=== PATIENT | female | born 1985 | race African-American/Black ===

== ENCOUNTER 2016-09-22 13:13 | Emergency (ER) | payer MEDICAID ==
[2016-09-22] MEDS ORDERED: DIPHENHYDRAMINE HCL 50 MG/ML VIAL IV ONE (14:49)
[2016-09-22] MEDS ORDERED: PROCHLORPERAZINE EDISYLATE INJ 10 MG/2 ML VIAL IV ONE (14:49)
[2016-09-22] MEDS ORDERED: KETOROLAC TROMETHAMINE INJ/PF 30 MG/1 ML SDV IV ONE (14:49)
[2016-09-22] MEDS ORDERED: NORMAL SALINE 1000 ML 1,000 ML IV ONE (14:49)
--- NOTE | 2016-09-22 15:34 | ER Document Report ---
ED Medical Screen (RME) - General TRAVEL OUTSIDE OF THE [place] IN LAST 30 DAYS: No <FIDEL HENLEY - Last Filed: 09/22/16 15:34> <TONY FLORES - Last Filed: 09/22/16 16:50> - General Chief Complaint: Headache Stated Complaint: HEAD PAIN Time Seen by Provider: 09/22/16 14:41 Notes: 31-year-old female presents emergency department for complaints of migraine. Patient states she has had this migraine for 3 days and she has been crying and vomiting. Patient states she took a Fioricet with no relief. Patient states she also has some right arm numbness that has been gone for about a month. Patient denies any suicidal ideation or homicidal ideation but has been very stressed out recently. Patient is also concerned that her blood glucose level is high. Patient has been told that she has prediabetes but she stopped taking metformin about a year ago. Patient states diabetes runs in her family. Patient states she tastes metal all the time. Patient also sees a [facility] and is aware of her mental health resources. (FIDEL HENLEY) - Related Data Allergies/Adverse Reactions: Penicillins Allergy (Intermediate, Verified 09/22/16 14:31) Past Medical History - Social History Family history: None - Past Medical History Cardiac Medical History: Reports: Hx Hypertension - Borderline Pulmonary Medical History: Reports: Hx Asthma Neurological Medical History: Reports: Hx Migraine Endocrine Medical History: Denies: Hx Diabetes Mellitus Type 1, Hx Diabetes Mellitus Type 2 Renal/ Medical History: Denies: Hx Peritoneal Dialysis Musculoskeltal Medical History: Reports Hx Fibromyalgia Past Surgical History: Reports: Hx Dilation and Curettage, Hx Gynecologic Surgery - D&C - Immunizations Immunizations up to date: Yes Hx Diphtheria, Pertussis, Tetanus Vaccination: Yes <FIDEL HENLEY - Last Filed: 09/22/16 15:34> Physical Exam <FIDEL HENLEY - Last Filed: 09/22/16 15:34> <TONY FLORES - Last Filed: 09/22/16 16:50> - Vital signs Vitals: Temp Pulse Resp BP Pulse Ox 98.1 F 62 18 125/97 H 100 09/22/16 14:00 09/22/16 14:00 09/22/16 14:00 09/22/16 14:00 09/22/16 14:00 - Notes Notes: GENERAL: Alert, interacts well. No acute distress. HEAD: No facial droop. LUNGS: No respiratory distress. HEART: Regular rate. EXTREMITIES: Moves all 4 extremities spontaneously. 5 out of 5 strength in upper extremities bilaterally. NEUROLOGICAL: Alert and oriented x3. Normal speech, not slurred. PSYCH: Tearful. (FIDEL HENLEY) Course - Laboratory Result Diagrams: 09/22/16 16:00 09/22/16 16:00 <TONY FLORES - Last Filed: 09/22/16 16:50> - Vital Signs Vital signs: Temp Pulse Resp BP Pulse Ox 98.1 F 62 18 125/97 H 100 09/22/16 14:00 09/22/16 14:00 09/22/16 14:00 09/22/16 14:00 09/22/16 14:00 - Laboratory Laboratory results interpreted by me: 09/22/16 09/22/16 09/22/16 16:00 16:00 16:00 WBC 11.2 H Absolute Neutrophils 8.3 H BUN 5 L Serum HCG, Qual POSITIVE H Scribe Documentation - Scribe Written by Scribe:: Yamel Morrison, 09/22/16 15:40 acting as scribe for :: Linwood <FIDEL HENLEY - Last Filed: 09/22/16 15:34>
[2016-09-22 16:09] LABS: ABSOLUTE LYMPHOCYTES (AUTO) 2.1 10^3/uL (0.5-4.7); ABSOLUTE MONOCYTES (AUTO) 0.7 10^3/uL (0.1-1.4); ABSOLUTE NEUT (AUTO) 8.3 10^3/uL (1.7-8.2); BASOPHILS % (AUTO) 0.4 % (0-2); EOSINOPHILS % (AUTO) 0.4 % (0-6); HEMOGLOBIN 12.5 g/dL (12.0-15.5); HGB HCT DIFFERENCE 0.5; MEAN CORPUSCULAR HEMOGLOBIN 31.4 pg (27.0-33.4); MEAN CORPUSCULAR HGB CONC 33.7 g/dL (32.0-36.0); MEAN CORPUSCULAR VOLUME 93 fl (80-97); MONOCYTES % (AUTO) 5.9 % (3-13); RED BLOOD COUNT 3.98 10^6/uL (3.72-5.28); RED CELL DISTRIBUTION WIDTH 13.8 % (11.5-14.0); SEGMENTED NEUTROPHILS % (AUTO) 74.3 % (42-78); WHITE BLOOD COUNT 11.2 10^3/uL (4.0-10.5)
[2016-09-22 16:30] LABS: ALANINE AMINOTRANSFERASE 21 U/L (9-52); ALBUMIN 4.1 g/dL (3.5-5.0); ALKALINE PHOSPHATASE 81 U/L (38-126); ANION GAP 11 (5-19); ASPARTATE AMINO TRANSFERASE 25 U/L (14-36); BILIRUBIN,DIRECT 0.2 mg/dL (0.0-0.4); BILIRUBIN,TOTAL 0.5 mg/dL (0.2-1.3); BLOOD UREA NITROGEN 5 mg/dL (7-20); CALCIUM 9.5 mg/dL (8.4-10.2); CARBON DIOXIDE 22 mmol/L (22-30); CHLORIDE 104 mmol/L (98-107); CREATININE RESULT 0.52 mg/dL (0.52-1.25); GLUCOSE 87 mg/dL (75-110); POTASSIUM 3.8 mmol/L (3.6-5.0); TOTAL PROTEIN 7.5 g/dL (6.3-8.2)
--- NOTE | 2016-09-22 18:45 | ER Document Report ---
ED General - General Chief Complaint: Headache Stated Complaint: HEAD PAIN Time Seen by Provider: 09/22/16 14:41 TRAVEL OUTSIDE OF THE [place] IN LAST 30 DAYS: No - HPI Patient complains to provider of: Headache nausea vomiting metal taste in mouth Notes: Patient coming in for the above-stated symptoms ongoing intermittently for months. Patient states that a history of chronic migraines headache today similar to migraines in the past. Patient states last menstrual cycle was in June. Patient states she did take a home test recently that was negative. Patient has a - Related Data Allergies/Adverse Reactions: Penicillins Allergy (Intermediate, Verified 09/22/16 14:31) Past Medical History - Social History Smoking Status: Current Some Day Smoker Chew tobacco use (# tins/day): No Frequency of alcohol use: None Drug Abuse: None, Marijuana Family History: Reviewed & Not Pertinent - Past Medical History Cardiac Medical History: Reports: Hx Hypertension - Borderline Pulmonary Medical History: Reports: Hx Asthma Neurological Medical History: Reports: Hx Migraine Endocrine Medical History: Denies: Hx Diabetes Mellitus Type 1, Hx Diabetes Mellitus Type 2 Renal/ Medical History: Denies: Hx Peritoneal Dialysis Musculoskeltal Medical History: Reports Hx Fibromyalgia Past Surgical History: Reports: Hx Dilation and Curettage, Hx Gynecologic Surgery - D&C - Immunizations Immunizations up to date: Yes Hx Diphtheria, Pertussis, Tetanus Vaccination: Yes Review of Systems - Review of Systems Constitutional: Other - Headache nausea vomiting placed in mouth EENT: No symptoms reported Cardiovascular: No symptoms reported Respiratory: No symptoms reported Gastrointestinal: No symptoms reported Genitourinary: No symptoms reported Female Genitourinary: No symptoms reported Musculoskeletal: No symptoms reported Skin: No symptoms reported Hematologic/Lymphatic: No symptoms reported Neurological/Psychological: No symptoms reported Physical Exam - Vital signs Vitals: Temp Pulse Resp BP Pulse Ox 98.1 F 62 18 125/97 H 100 09/22/16 14:00 09/22/16 14:00 09/22/16 14:00 09/22/16 14:00 09/22/16 14:00 Interpretation: Normal - General General appearance: Appears well, Alert - HEENT Head: Normocephalic, Atraumatic Eyes: Normal Pupils: PERRL - Respiratory Respiratory status: No respiratory distress Chest status: Nontender Breath sounds: Normal Chest palpation: Normal - Cardiovascular Rhythm: Regular Heart sounds: Normal auscultation Murmur: No - Abdominal Inspection: Morbidly Obese Distension: No distension Bowel sounds: Normal Tenderness: Nontender Organomegaly: No organomegaly - Back Back: Normal, Nontender - Extremities General upper extremity: Normal inspection, Nontender, Normal color, Normal ROM , Normal temperature General lower extremity: Normal inspection, Nontender, Normal color, Normal ROM , Normal temperature, Normal weight bearing. No: Tohng's sign - Neurological Neuro grossly intact: Yes Cognition: Normal Orientation: AAOx4 Marlo Coma Scale Eye Opening: Spontaneous [place] Coma Scale Verbal: Oriented [place] Coma Scale Motor: Obeys Commands Marlo Coma Scale Total: 15 Speech: Normal Motor strength normal: LUE, RUE, LLE, RLE Sensory: Normal - Psychological Associated symptoms: Normal affect, Normal mood - Skin Skin Temperature: Warm Skin Moisture: Dry Skin Color: Normal Course - Re-evaluation Re-evalutation: 09/22/16 19:26 Patient's lab work shows that she is . Bedside ultrasound showed a IUP with biparietal measurement showing 15 weeks. heart rate was at 150. Patient was encouraged to follow-up with [facility] Tylenol for headache Reglan for nausea along with [id number]-yoq-cxieghu options were given to the patient and her discharge instructions - Vital Signs Vital signs: Temp Pulse Resp BP Pulse Ox 98.4 F 81 18 108/60 99 09/22/16 18:54 09/22/16 18:54 09/22/16 18:54 09/22/16 18:54 09/22/16 18:54 - Laboratory Result Diagrams: 09/22/16 16:00 09/22/16 16:00 Laboratory results interpreted by me: 09/22/16 09/22/16 09/22/16 16:00 16:00 16:00 WBC 11.2 H Absolute Neutrophils 8.3 H BUN 5 L Serum HCG, Qual POSITIVE H Beta HCG, Quant 09/22/16 16:00 WBC Absolute Neutrophils BUN Serum HCG, Qual Beta HCG, Quant 52486.00 H Discharge - Discharge Clinical Impression: Qualifiers: Weeks of gestation: 15 weeks Qualified Code(s): Z3A.15 - 15 weeks gestation of Headache Qualifiers: Headache type: unspecified Headache chronicity pattern: chronic headache Intractability: not intractable Qualified Code(s): R51 - Headache Nausea and vomiting Qualifiers: Vomiting type: unspecified Vomiting Intractability: unspecified Qualified Code( s): R11.2 - Nausea with vomiting, unspecified Condition: Good Disposition: HOME, SELF-CARE Instructions: ([facility]), Nausea or Vomiting, Nonspecific ([facility]), Headache ([facility]), Ob-Dry Cans Operator Doctors Additional Instructions: Laboratory studies have shown that you are . This could explain a multitude of other symptoms including the metal taste in her mouth or nausea or vomiting and your headache. Shows you are approximately 15 weeks . Please take vitamins as prescribed. You may take the Reglan as prescribed You have been seen for vomiting during . You should continue to drink plenty of water and consider taking a solution such as Pedialyte if your having difficulty eating food. Please return if you become unable to drink any fluids for more than 12 hours, urinate less than twice a day, pass out, or have any other symptoms that are concerning to you. For nausea and vomiting during I recomment: Start with 10-12.5 mg of pyridoxine (vitamin B6) three times a day for 2 days. If not fully effective, Increase to 12.5 mg of pyridoxine four times a day for 2 days. If not fully effective, Increase to 25 mg of pyridoxine three times a day for 2 days. If not fully effective, Continue 25 mg pyridoxine 3 times a day, and add 12.5 mg of doxylamine before bedtime each day for 2 days. If not fully effective, Continue 25 mg pyridoxine 3 times a day, and take 12.5 mg of doxylamine twice a day. If not fully effective, Continue 25 mg pyridoxine 3 times a day, and take 12.5 mg of doxylamine three times a day. If not fully effective, Continue 25 mg pyridoxine 3 times a day, and 12.5 mg of doxylamine 3 times a day , while adding Emetrol, one to two tablespoons (15-30 cc) taken once or twice a day as needed. (Emetrol is an llla-prv-xwoovqv mixture of sugar syrups and phosphoric acid [phosphorylated carbohydrate solution]) that acts by soothing the actual wall of the gastrointestinal tract). If not fully effective, Consult with your doctor. Prescriptions: Metoclopramide HCl [Reglan] 5 mg PO Q6 #20 tablet Jve028/FA/Omega3/Dha/Fish Oil [ Gummies] 1 each PO DAILY #30 tab.chew Forms: Return to Work
[2016-09-22 18:56] VITALS: BP 108/60
== END 2016-09-22 18:55 | disposition home or self-care (01) ==
LOC: ER 13:13
DX: O26.892 Other specified pregnancy related conditions, second trimester (principal); R51 Headache; R43.8 Other disturbances of smell and taste; O21.9 Vomiting of pregnancy, unspecified; O99.512 Diseases of the respiratory system complicating pregnancy, second trimester; J45.909 Unspecified asthma, uncomplicated; O99.332 Smoking (tobacco) complicating pregnancy, second trimester; Z3A.15 15 weeks gestation of pregnancy; Z88.0 Allergy status to penicillin
CPT/HCPCS: 96374; 99284; 96375; 36415; 82962; 84702; 84703; 85025; 80053; J1200; J1885; J0780; J7030

== ENCOUNTER → 2016-11-18 | Outpatient (CLI) | payer MEDICAID ==
--- NOTE | 2016-11-18 17:56 | RADIOLOGY REPORT (SQ) ---
EXAM DESCRIPTION: U/S OB 14+ TRNABD 1GES W/O DOP COMPLETED DATE/TIME: 11/18/2016 2:54 pm REASON FOR STUDY: ANATOMY SCAN COMPARISON: None. TECHNIQUE: Static and Dynamic grayscale imaging performed of gravid uterus using transabdominal appr oac. Additional selected color Doppler and spectral images recorded. All stored on PACS. LIMITATIONS: None. FINDINGS: EGA: 22 weeks 5 days ANTON: 03/19/2017 EFW: 539 +/- 80 g PERCENTILE: 41 EMBER: Largest pocket 4.9 cm PLACENTA: Anterior PRESENTATION: Breech ANATOMY: HEART RATE: 150 beats per minute. FOUR CHAMBER HEART: Visualized. THREE VESSEL CORD: Yes. CORD INSERTION: Visualized. KIDNEYS AND BLADDER: Visualized. Appear normal. STOMACH: Visualized. Appears normal. SPINE: Normal as visualized. BRAIN AND LATERAL VENTRICLES: Visualized. Appear normal. OTHER: No other significant finding. MATERNAL ADNEXA: Maternal ovaries not visualized. CERVICAL LENGTH: 4.2 cm Closed. OTHER: No other significant finding. IMPRESSION: LIVING INTRAUTERINE . ESTIMATED GESTATIONAL AGE 22 weeks 5 days NO VISUALIZED ANOMALIES. Trimester of : Second trimester - 13 weeks 1 day to 27 weeks 6 days. TECHNICAL DOCUMENTATION: JOB ID: [id number] [employer]- All Rights Reserved
== END ==
LOC: RAD 12:53
PROVIDERS: ATTEND Nurse Practitioner Women's Health
DX: Z34.82 Encounter for supervision of other normal pregnancy, second trimester (principal)
CPT/HCPCS: 76805

== ENCOUNTER 2017-01-02 00:01 | Outpatient (CLI) | payer MEDICAID ==
[2017-01-02 00:35] LABS: APPEARANCE,URINE CLEAR; BILIRUBIN,URINE NEGATIVE (NEGATIVE); GLUCOSE, URINE NEGATIVE (NEGATIVE); KETONES,URINE NEGATIVE (NEGATIVE); LEUKOCYTE ESTERASE,URINE TRACE (NEGATIVE); NITRITE,URINE NEGATIVE (NEGATIVE); PROTEIN,URINE NEGATIVE (NEGATIVE); URINE SPECIFIC GRAVITY 1.008; UROBILINOGEN,URINE NEGATIVE mg/dL (<2.0)
[2017-01-02 01:21] LABS: AMNISURE (ROM) NEGATIVE (NEGATIVE)
[2017-01-02 01:54] LABS: URINE BARBITURATES SCREEN NEGATIVE; URINE METHADONE SCREEN NEGATIVE; URINE OPIATES LOW NEGATIVE; URINE PHENCYCLIDINE SCREEN NEGATIVE
== END 2017-01-02 01:40 | disposition home or self-care (01) ==
LOC: LC 00:01
PROVIDERS: ATTEND Obstetrics & Gynecology
PROC: 4A1HXCZ Monitoring of Products of Conception, Cardiac Rate, External Approach (ICD-10-PCS; principal; 2017-01-02)
DX: Z34.93 Encounter for supervision of normal pregnancy, unspecified, third trimester (principal); Z36 Encounter for antenatal screening of mother; Z3A.29 29 weeks gestation of pregnancy
CPT/HCPCS: 59899; 84112; 81001; 80307; G0480 ×2

== ENCOUNTER 2017-02-20 13:00 | Emergency (ER) | payer MEDICAID ==
[2017-02-20 13:09] VITALS: BP 136/75
[2017-02-20] MEDS ORDERED: HYDROCODONE/ACETAMINOPHEN 5-325 MG TABLET PO ONE (14:07)
--- NOTE | 2017-02-20 14:07 | ER Document Report ---
HPI - HPI Patient complains to provider of: Low back pain radiating to right hip and leg Onset: Last week Onset/Duration: Intermittent Quality of pain: Sharp Severity: Severe Pain Level: 5 Context: Patient states she has a history of low back pain with sciatica. States she is moving into a new home, and has been lifting heavy boxes. Patient denies loss of control of bowels or bladder, denies abdominal pain or vaginal discharge or bleeding. States she can feel the baby moving. Denies dysuria. States she had a couple of contractions last night but they stopped. Associated Symptoms: None Exacerbated by: Movement Relieved by: Denies Similar symptoms previously: Yes Recently seen / treated by doctor: No - ROS ROS below otherwise negative: Yes Systems Reviewed and Negative: Yes All other systems reviewed and negative - CONSTITUTIONAL Constitutional: DENIES: Fever - EENT EENT: DENIES: Congestion - NEURO Neurology: DENIES: Headache - CARDIOVASCULAR Cardiovascular: DENIES: Chest pain - RESPIRATORY Respiratory: DENIES: Trouble Breathing - GASTROINTESTINAL Gastrointestinal: DENIES: Abdominal Pain - URINARY Urinary: DENIES: Dysuria - REPRODUCTIVE Reproductive: DENIES: : - MUSCULOSKELETAL Musculoskeletal: REPORTS: Back Pain - DERM Skin Color: Normal Skin Problems: None Past Medical History - General Information source: Patient - Social History Smoking Status: Current Some Day Smoker Chew tobacco use (# tins/day): No Frequency of alcohol use: None Drug Abuse: None Lives with: Family Family History: Reviewed & Not Pertinent - Past Medical History Cardiac Medical History: Reports: Hx Hypertension - Borderline Pulmonary Medical History: Reports: Hx Asthma Neurological Medical History: Reports: Hx Migraine Musculoskeltal Medical History: Reports Hx Fibromyalgia Past Surgical History: Reports: Hx Dilation and Curettage, Hx Gynecologic Surgery - D&C - Immunizations Immunizations up to date: Yes Hx Diphtheria, Pertussis, Tetanus Vaccination: Yes Vertical Provider Document - CONSTITUTIONAL Agree With Documented VS: Yes Exam Limitations: No Limitations General Appearance: WD/WN, Mild Distress Notes: Patient crying, complaining of lower back pain radiating to right hip/leg. States her sister works upstairs and will be able to drive her home prior to medications being given. - INFECTION CONTROL TRAVEL OUTSIDE OF THE [place] IN LAST 30 DAYS: No - HEENT HEENT: Atraumatic, Normocephalic - NECK Neck: Normal Inspection - RESPIRATORY Respiratory: Breath Sounds Normal, No Respiratory Distress O2 Sat by Pulse Oximetry: 100 - CARDIOVASCULAR Cardiovascular: Regular Rate, Regular Rhythm - GI/ABDOMEN Gastrointestinal: Abdomen Soft, Abdomen Non-Tender - Patient 38 weeks - BACK Notes: Mild tenderness to lumbar spine, right-sided paraspinal muscles tender. Pain radiates down right leg when pressed over sciatic nerve right buttock. No saddle anesthesia on exam - MUSCULOSKELETAL/EXTREMETIES Musculoskeletal/Extremeties: MAEW - NEURO Level of Consciousness: Awake, Alert, Appropriate - DERM Integumentary: Warm, Dry, No Rash Course - Re-evaluation Re-evalutation: 02/20/17 15:54 Pain greatly relieved after one Otis given. Patient sitting up, right leg flexed under left. - Vital Signs Vital signs: Temp Pulse Resp BP Pulse Ox 98.6 F 77 20 136/75 H 100 02/20/17 13:08 02/20/17 13:08 02/20/17 13:08 02/20/17 13:08 02/20/17 13:08 Discharge - Discharge Clinical Impression: Low back pain with right-sided sciatica Qualifiers: Chronicity: unspecified Back pain laterality: right Qualified Code(s): M54.41 - Lumbago with sciatica, right side Condition: Good Disposition: HOME, SELF-CARE Additional Instructions: Tylenol as needed, do not take Otis unless absolutely necessary for pain Ice or heat packs to back Follow-up with your doctor Wednesday for recheck Return if worsens and as needed Prescriptions: Hydrocodone/Acetaminophen [Otis 5-325 mg Tablet] 1 tab PO TID #5 tablet Forms: Return to Work
[2017-02-20 15:42] LABS: APPEARANCE,URINE SLIGHTLY-CLOUDY; BILIRUBIN,URINE NEGATIVE (NEGATIVE); GLUCOSE, URINE NEGATIVE (NEGATIVE); KETONES,URINE NEGATIVE (NEGATIVE); LEUKOCYTE ESTERASE,URINE SMALL (NEGATIVE); NITRITE,URINE NEGATIVE (NEGATIVE); PROTEIN,URINE NEGATIVE (NEGATIVE); UROBILINOGEN,URINE NEGATIVE mg/dL (<2.0)
== END 2017-02-20 16:11 | disposition home or self-care (01) ==
LOC: ER 13:00
DX: O26.93 Pregnancy related conditions, unspecified, third trimester (principal); M54.41 Lumbago with sciatica, right side; F17.200 Nicotine dependence, unspecified, uncomplicated; Z3A.38 38 weeks gestation of pregnancy
CPT/HCPCS: 81001; 99283

== ENCOUNTER 2017-03-01 09:15 | Outpatient (CLI) | payer MEDICAID ==
[2017-03-01 09:47] LABS: APPEARANCE,URINE SLIGHTLY-CLOUDY; BILIRUBIN,URINE NEGATIVE (NEGATIVE); GLUCOSE, URINE NEGATIVE (NEGATIVE); KETONES,URINE NEGATIVE (NEGATIVE); LEUKOCYTE ESTERASE,URINE LARGE (NEGATIVE); NITRITE,URINE NEGATIVE (NEGATIVE); PROTEIN,URINE NEGATIVE (NEGATIVE); URINE SPECIFIC GRAVITY 1.012
[2017-03-01 10:02] LABS: URINE BARBITURATES SCREEN NEGATIVE; URINE METHADONE SCREEN NEGATIVE; URINE OPIATES LOW NEGATIVE; URINE PHENCYCLIDINE SCREEN NEGATIVE
[2017-03-01 11:19] LABS: ABSOLUTE LYMPHOCYTES (AUTO) 1.7 10^3/uL (0.5-4.7); ABSOLUTE MONOCYTES (AUTO) 0.6 10^3/uL (0.1-1.4); ABSOLUTE NEUT (AUTO) 6.7 10^3/uL (1.7-8.2); BASOPHILS % (AUTO) 0.1 % (0-2); EOSINOPHILS % (AUTO) 0.3 % (0-6); HEMATOCRIT 29.7 % (36.0-47.0); HEMOGLOBIN 10.3 g/dL (12.0-15.5); HGB HCT DIFFERENCE 1.2; LYMPHOCYTES % (AUTO) 18.6 % (13-45); MEAN CORPUSCULAR HEMOGLOBIN 32.1 pg (27.0-33.4); MEAN CORPUSCULAR HGB CONC 34.7 g/dL (32.0-36.0); MEAN CORPUSCULAR VOLUME 93 fl (80-97); MONOCYTES % (AUTO) 6.8 % (3-13); RED BLOOD COUNT 3.22 10^6/uL (3.72-5.28); RED CELL DISTRIBUTION WIDTH 13.5 % (11.5-14.0); SEGMENTED NEUTROPHILS % (AUTO) 74.2 % (42-78)
--- NOTE | 2017-03-01 11:46 | RADIOLOGY REPORT (SQ) ---
EXAM DESCRIPTION: U/S OB LIMITED COMPLETED DATE/TIME: 03/01/2017 11:30 am REASON FOR STUDY: growth for limited care COMPARISON: None. TECHNIQUE: Limited transvaginal grayscale ultrasound for evaluation of specific requested obstetrica l parameters. LIMITATIONS: None. FINDINGS: Intrauterine with heart rate 153. Vertex presentation. Anterior grade 1 placenta. EMBER 13. Estimated weight 3047 g. IMPRESSION: LIMITED OBSTETRICAL ULTRASOUND WITH MEASURED PARAMETERS DELINEATED ABOVE. Trimester of : Third trimester - 28 weeks to delivery. TECHNICAL DOCUMENTATION: JOB ID: [id number] [employer]- All Rights Reserved
--- NOTE | 2017-03-01 11:57 | Non Stress Test Report ---
Non Stress Test Datetime Report Generated by CPN: 03/01/2017 11:57 DEMOGRAPHIC EGA NST: 37.3 EGA NST: 29.0 INDICATION Indication for Study: Other Indication for Study: Other Indication for Study (NST) Other: Labor check, limited PNC Indication for Study (NST) Other: labor check MONITORING Monitor Explained: Monitor Explained; Test Explained; Patient Verbalized Understanding Monitor Explained: Monitor Explained; Test Explained; Patient Verbalized Understanding Time on Monitor: 03/01/2017 09:59 Time on Monitor: 01/02/2017 00:19 Time off Monitor: 03/01/2017 10:46 Time off Monitor: 01/02/2017 01:09 NST Duration: 47 NST Duration: 50 NST INTERVENTIONS NST Interventions: PO Hydration; Reposition Patient NST Interventions: None Physician Notified NST: C. Stern, CNM Physician Notified NST: Dr Katz BABY A: [id number] BABY A Movement : Present Movement : Present Contraction Frequency : 1 UC Contraction Frequency : none FHR Baseline : 145 FHR Baseline : 135 Accelerations : 15X15 Accelerations : 15X15 Decelerations : None Decelerations : None Variability : Moderate 6-25bpm Variability : Moderate 6-25bpm NST Review: Meets Criteria for Reactive NST NST Review: Meets Criteria for Reactive NST NST Review and Verified By : Diego BLANCA NST Results: Reactive NST Results: Reactive NST REPORT Report Trigger: Send Report
[2017-03-01 12:18] LABS: ADD HIVPANEL? NO; HIV (1 AND 2) ANTIBODY NEGATIVE (NEGATIVE)
[2017-03-01 14:05] LABS: CHLAM PCR NOT DETECTED (NOT DETECT)
[2017-03-02 08:41] LABS: HEPATITIS C VIRUS AB <0.1 s/co ratio (0.0-0.9)
== END 2017-03-01 12:07 | disposition home or self-care (01) ==
LOC: LC 09:15
PROVIDERS: ATTEND Obstetrics & Gynecology
DX: M25.551 Pain in right hip (principal); R10.9 Unspecified abdominal pain; Z3A.37 37 weeks gestation of pregnancy; O26.893 Other specified pregnancy related conditions, third trimester
CPT/HCPCS: 36415; 59025; 76815; 80307; 81005; 85025; 86592; 86701; 86762; 86803; 86804; 86850; 86900; 86901; 87077; 87081; 87340; 87491; 87591

== ENCOUNTER 2017-03-10 17:37 | Outpatient (CLI) | payer MEDICAID ==
[2017-03-10 18:30] LABS: APPEARANCE,URINE SLIGHTLY-CLOUDY; BILIRUBIN,URINE NEGATIVE (NEGATIVE); GLUCOSE, URINE NEGATIVE (NEGATIVE); KETONES,URINE NEGATIVE (NEGATIVE); LEUKOCYTE ESTERASE,URINE SMALL (NEGATIVE); NITRITE,URINE NEGATIVE (NEGATIVE); PROTEIN,URINE NEGATIVE (NEGATIVE); URINE SPECIFIC GRAVITY 1.017
[2017-03-10 18:45] LABS: URINE BARBITURATES SCREEN NEGATIVE; URINE METHADONE SCREEN NEGATIVE; URINE OPIATES LOW NEGATIVE; URINE PHENCYCLIDINE SCREEN NEGATIVE
[2017-03-10 18:57] LABS: URINE CREATININE 142.3 mg/dL (16-327); URINE PROTEIN 7.7 mg/dL (<12)
[2017-03-10] MEDS ORDERED: ACETAMINOPHEN 325 MG TABLET PO ONE (19:03)
[2017-03-10] MEDS ORDERED: ACETAMINOPHEN 325 MG TABLET ONE (19:04)
--- NOTE | 2017-03-10 19:23 | Non Stress Test Report ---
Non Stress Test Datetime Report Generated by CPN: 03/10/2017 19:22 DEMOGRAPHIC EGA NST: 38.5 INDICATION Indication for Study: Ordered by Provider MONITORING Monitor Explained: Monitor Explained; Test Explained; Patient Verbalized Understanding Time on Monitor: 03/10/2017 17:41 Time off Monitor: 03/10/2017 19:06 NST Duration: 85 NST INTERVENTIONS NST Interventions: PO Hydration; Reposition Patient Physician Notified NST: Dr. Cameron BABY A Movement : Present Contraction Frequency : 0 FHR Baseline : 135 Accelerations : 15X15 Decelerations : None Variability : Moderate 6-25bpm NST Review: Meets Criteria for Reactive NST NST Review and Verified By : RIANNA Kelsey NSBrian Results: Reactive NST REPORT Report Trigger: Send Report
== END 2017-03-10 19:17 | disposition home or self-care (01) ==
LOC: EDBD 17:37 → LC 17:37
PROVIDERS: ATTEND Obstetrics & Gynecology
PROC: 4A1HXCZ Monitoring of Products of Conception, Cardiac Rate, External Approach (ICD-10-PCS; principal; 2017-03-10)
DX: O47.1 False labor at or after 37 completed weeks of gestation (principal); O26.893 Other specified pregnancy related conditions, third trimester; R51 Headache; R42 Dizziness and giddiness; Z3A.38 38 weeks gestation of pregnancy
CPT/HCPCS: 59025; 82962; 84156; 82570; 81005; 80307; J3490

== ENCOUNTER → 2017-03-10 | Outpatient (CLI) | payer MEDICAID | LOC: EDBD → LC 17:31 | PROVIDERS: ATTEND Obstetrics & Gynecology | DX: Z53.9 Procedure and treatment not carried out, unspecified reason (principal) ==

== ENCOUNTER 2017-07-23 11:12 | Emergency (ER) | payer MEDICAID ==
[2017-07-23] MEDS ORDERED: ACETAMINOPHEN 325 MG TABLET PO ONE (11:16)
--- NOTE | 2017-07-23 12:06 | RADIOLOGY REPORT (SQ) ---
EXAM DESCRIPTION: FOOT RIGHT COMPLETE COMPLETED DATE/TIME: 07/23/2017 11:47 am REASON FOR STUDY: dropped carjack on top of foot COMPARISON: None. NUMBER OF VIEWS: Three views. TECHNIQUE: AP, lateral and oblique radiographic images acquired of the right foot. LIMITATIONS: None. FINDINGS: MINERALIZATION: Normal. BONES: No acute fracture or dislocation. No worrisome bone lesions. JOINTS: No effusions. SOFT TISSUES: No soft tissue swelling. No foreign body. OTHER: No other significant finding. IMPRESSION: NEGATIVE STUDY OF THE RIGHT FOOT. NO RADIOGRAPHIC EVIDENCE OF ACUTE INJURY. TECHNICAL DOCUMENTATION: JOB ID: [id number] [employer]- All Rights Reserved Reading location - IP/workstation name: [email or web address]
--- NOTE | 2017-07-23 12:18 | ER Document Report ---
HPI - HPI Patient complains to provider of: big kirill fell on right foot Onset: This morning Pain Level: 3 Context: 32 yo female trying to get something out of the closet had large car kirill fall on top of bare right foot. No skin puncture. Hurts to walk on it. Associated Symptoms: None Exacerbated by: Denies Relieved by: Denies Similar symptoms previously: No Recently seen / treated by doctor: No - ROS ROS below otherwise negative: Yes Systems Reviewed and Negative: Yes All other systems reviewed and negative - REPRODUCTIVE Reproductive: DENIES: : - MUSCULOSKELETAL Musculoskeletal: REPORTS: Extremity pain - dropped kirill on foot Past Medical History - General Information source: Patient - Social History Smoking Status: Current Every Day Smoker Chew tobacco use (# tins/day): No Frequency of alcohol use: Occasional Drug Abuse: None Lives with: Family Family History: Reviewed & Not Pertinent Patient has suicidal ideation: No Patient has homicidal ideation: No - Past Medical History Cardiac Medical History: Reports: Hx Hypertension - Borderline Pulmonary Medical History: Reports: Hx Asthma Neurological Medical History: Reports: Hx Migraine Renal/ Medical History: Denies: Hx Peritoneal Dialysis Musculoskeltal Medical History: Reports Hx Fibromyalgia Past Surgical History: Reports: Hx Dilation and Curettage, Hx Gynecologic Surgery - D&C - Immunizations Immunizations up to date: Yes Hx Diphtheria, Pertussis, Tetanus Vaccination: Yes Vertical Provider Document - CONSTITUTIONAL Agree With Documented VS: Yes Exam Limitations: No Limitations General Appearance: No Apparent Distress - INFECTION CONTROL TRAVEL OUTSIDE OF THE [place] IN LAST 30 DAYS: No - HEENT HEENT: Normocephalic - NECK Neck: Supple - MUSCULOSKELETAL/EXTREMETIES Musculoskeletal/Extremeties: MAEW, FROM, Tender, Edema, Eccymosis - dorsal right foot over distal 2-3rd MT Course - Vital Signs Vital signs: Temp Pulse Resp BP Pulse Ox 98.4 F 64 16 145/94 H 99 07/23/17 11:16 07/23/17 11:16 07/23/17 11:16 07/23/17 11:16 07/23/17 11:16 Procedures - Immobilization Right Foot Time completed: 12:45 Pre-Proc Neuro Vasc Exam: Normal Immobilizer type: Will wrap Performed by: PCT Post-Proc Neuro Vasc Exam: Normal Alignment checked and good: Yes Discharge - Discharge Clinical Impression: Contusion of right foot Qualifiers: Encounter type: initial encounter Qualified Code(s): S90.31XA - Contusion of right foot, initial encounter Condition: Good Disposition: HOME, SELF-CARE Instructions: Will Wrap ([facility]), Contusion ([facility]), Use of Crutches ([facility]), Elevate the Injury ([facility]), Use of [id number] Ibuprofen ([facility]) Additional Instructions: elevate foot this weekend use crutches will wrap for comfort ibuprofen for pain see orthopedic doctor if persists Forms: Return to Work Referrals: KAM RUBIO MD [ACTIVE STAFF] - Follow up as needed
[2017-07-23 12:57] VITALS: BP 134/59
== END 2017-07-23 12:45 | disposition home or self-care (01) ==
LOC: ER 11:12
DX: S90.31XA Contusion of right foot, initial encounter (principal); W20.8XXA Other cause of strike by thrown, projected or falling object, initial encounter; Y93.89 Activity, other specified; F17.200 Nicotine dependence, unspecified, uncomplicated; J45.909 Unspecified asthma, uncomplicated
CPT/HCPCS: 99283; 73630; J3490

== ENCOUNTER 2017-09-09 13:41 | Emergency (ER) | payer MEDICAID ==
[2017-09-09 13:57] VITALS: BP 121/73
--- NOTE | 2017-09-09 14:30 | ER Document Report ---
ED Extremity Problem, Lower - General Chief Complaint: Knee Pain Stated Complaint: KNEE PAIN Time Seen by Provider: 09/09/17 13:50 Mode of Arrival: Ambulatory Information source: Patient TRAVEL OUTSIDE OF THE [place] IN LAST 30 DAYS: No - HPI Patient complains to provider of: Pain Location: Knee Notes: Patient is here with complaints of bilateral knee pain. The patient states her knees have been hurting for the last few days. She denies any falls or injuries. No trauma. She does dress here and is on her feet for long hours each day. She also tells me she has a history of fibromyalgia. She denies any redness or fever. No numbness, tingling, weakness. No chest pain or shortness of breath. No abdominal pain. No nausea, vomiting, diarrhea. Pain is worse with walking, better with rest. She denies any other complaints at this time. - Related Data Allergies/Adverse Reactions: Penicillins Allergy (Intermediate, Verified 03/01/17 09:33) Past Medical History - Social History Smoking Status: Never Smoker Family History: Reviewed & Not Pertinent Patient has suicidal ideation: No Patient has homicidal ideation: No - Past Medical History Cardiac Medical History: Reports: Hx Hypertension - Borderline Pulmonary Medical History: Reports: Hx Asthma Neurological Medical History: Reports: Hx Migraine Endocrine Medical History: Denies: Hx Diabetes Mellitus Type 1, Hx Diabetes Mellitus Type 2 Renal/ Medical History: Denies: Hx Peritoneal Dialysis Musculoskeltal Medical History: Reports Hx Fibromyalgia Past Surgical History: Reports: Hx Dilation and Curettage, Hx Gynecologic Surgery - D&C - Immunizations Immunizations up to date: Yes Hx Diphtheria, Pertussis, Tetanus Vaccination: Yes Review of Systems - Review of Systems -: Yes All other systems reviewed and negative Physical Exam - Vital signs Vitals: Temp Pulse Resp BP Pulse Ox 98.8 F 85 16 121/73 99 09/09/17 13:56 09/09/17 13:56 09/09/17 13:56 09/09/17 13:56 09/09/17 13:56 - Notes Notes: GENERAL: alert, cooperative, nontoxic, no distress. HEAD: normocephalic, atraumatic EYES: conjunctiva pink without discharge, no external redness or swelling. EARS: no external swelling, no external redness NOSE: atraumatic, no external swelling MOUTH/THROAT: mucous membranes moist and pink NECK: soft, supple, full range of motion, no meningismus. CHEST: no distress, lungs clear and equal throughout. No wheezing, rales, rhonchi. CARDIAC: regular rate and rhythm, no murmur, normal capillary refill, normal pulses. BACK: full range of motion, no CVA tenderness. EXTREMITIES: full range of motion of all extremities. No redness, no swelling. No significant tenderness to palpation of the bilateral knees. No ligament instability. Normal pulse and sensation. No rash. NEURO: alert and oriented 3, no focal deficits, full range of motion of all extremities. PYSCH: appropriate mood, affect. Patient is cooperative. SKIN: pink, warm, dry, no rash. Course - Re-evaluation Re-evalutation: 09/09/17 14:27 Patient is nontoxic appearing with stable vitals. She is here with complaints of bilateral knee pain. No injury. No fevers. No redness or swelling. There is no ligament instability. She has a benign exam. Normal neurovascular exam. She is afebrile. With lack of trauma, do not believe that x-rays are needed at this time. The patient is morbidly obese and is on her feet for long hours a day, this is likely the source of her knee pain. At this point the patient will have Will wraps applied to both knees. She is already on 800 mg ibuprofen which she will be can instructed to continue. Rest, ice, elevate. Follow-up with her primary care doctor if her symptoms persist. I will also refer her to orthopedics. She should follow-up sooner she develops worsening pain, fever, redness, numbness, tingling, weakness, any further concerns. The patient is noted to have elevated blood pressure during today's emergency department visit. The patient was informed of this finding. The patient was instructed that this may be related to pre-hypertension and requires further evaluation with a primary care provider. The patient has no hypertensive symptoms at this time. The patient's emergency department workup and current diagnosis were explained to the patient and or family. Follow-up instructions were provided. Medications if prescribed were discussed. Instructions for when to return to the emergency department including specific worrisome symptoms were discussed with the patient and/or family. - Vital Signs Vital signs: Temp Pulse Resp BP Pulse Ox 98.8 F 85 16 121/73 99 09/09/17 13:56 05/10/18 13:56 09/09/17 13:56 09/09/17 13:56 09/09/17 13:56 Procedures - Immobilization bilateral knees Pre-Proc Neuro Vasc Exam: Normal Immobilizer type: Will wrap Performed by: PCT Post-Proc Neuro Vasc Exam: Normal Alignment checked and good: Yes Discharge - Discharge Clinical Impression: Bilateral knee pain Qualifiers: Chronicity: acute Qualified Code(s): M25.561 - Pain in right knee; M25.562 - Pain in left knee; M25.562 - Pain in left knee Condition: Stable Disposition: HOME, SELF-CARE Instructions: Ice & Elevation ([facility]), Oral Narcotic Medication ([facility]) Additional Instructions: Wear Will wrap as needed for comfort. Rest, ice, elevate. Follow-up with your doctor at the next available appointment. Follow-up sooner for worsening pain, fever, redness, numbness, tingling, weakness, any further concerns. Your blood pressure was elevated during today's visit. Have this rechecked with your doctor. The medication you were prescribed today may cause drowsiness. Do not drive or operate heavy machinery while taking this medication. Prescriptions: Tramadol HCl [Ultram 50 mg Tablet] 50 mg PO Q6HP PRN #10 tablet PRN Reason: Forms: Elevated Blood Pressure, Smoking Cessation Education Referrals: BERT OLSON MD [ACTIVE STAFF] - Follow up as needed
== END 2017-09-09 14:39 | disposition home or self-care (01) ==
LOC: ER 13:41
DX: M25.561 Pain in right knee (principal); M25.562 Pain in left knee; R03.0 Elevated blood-pressure reading, without diagnosis of hypertension
CPT/HCPCS: 99283

== ENCOUNTER → 2018-02-18 | Outpatient (CLI) | payer MEDICAID ==
--- NOTE | 2018-02-18 16:42 | RADIOLOGY REPORT (SQ) ---
EXAM DESCRIPTION: U/S OB 14+ TRNABD 1GES W/O DOP COMPLETED DATE/TIME: 02/18/2018 4:14 pm REASON FOR STUDY: ENCOUNTER FOR SUPERVISION OF OTHER NORMAL , 2ND TRI Z34.82 ENCOUNTER FOR SUPRVSN OF NORMAL , SECOND TRI COMPARISON: None. TECHNIQUE: Static and Dynamic grayscale imaging performed of gravid uterus using transabdominal appr oach. Additional selected color Doppler and spectral images recorded. All stored on PACS. LIMITATIONS: None. FINDINGS: FETUSES SEEN:1 EGA: 22 week 2 day. Calculated using BPD,FL,HC,AC documented on images. Clinical dates unavailable. ANTON: 06/22/2018. EFW: 489 grams EMBER: Adequate amount. Largest pocket 4.3 cm. PLACENTA: Anterior. GRADE: I PRESENTATION: Transverse. ANATOMY: HEART RATE: 153 beats per minute. FOUR CHAMBER HEART: Visualized. THREE VESSEL CORD: Yes. CORD INSERTION: Visualized. KIDNEYS AND BLADDER: Visualized. Appear normal. STOMACH: Visualized. Appears normal. SPINE: Normal as visualized. BRAIN AND LATERAL VENTRICLES: Visualized. Appear normal. OTHER: No other significant finding. MATERNAL ADNEXA: Maternal ovaries not visualized. CERVICAL LENGTH: 5.1 cm. Closed. OTHER: No other significant finding. IMPRESSION: LIVING INTRAUTERINE . ESTIMATED GESTATIONAL AGE 22 WEEK 2 DAY. NO VISUALIZED ANOMALIES. Trimester of : Second trimester - 13 weeks 1 day to 27 weeks 6 days. TECHNICAL DOCUMENTATION: JOB ID: [id number] [employer]- All Rights Reserved Reading location - IP/workstation name: [email or web address]
== END ==
LOC: RAD 15:01
PROVIDERS: ATTEND Nurse Practitioner
DX: Z34.82 Encounter for supervision of other normal pregnancy, second trimester (principal)
CPT/HCPCS: 76805

== ENCOUNTER 2018-07-08 10:12 | Emergency (ER) | payer MEDICAID ==
[2018-07-08] MEDS ORDERED: RINGERS SOLUTION,LACTATED 1,000 ML IV ONE (10:34)
[2018-07-08] MEDS ORDERED: METOCLOPRAMIDE HCL INJ/PF 10 MG/2 ML SDV IV ONE (10:35)
[2018-07-08] MEDS ORDERED: DIPHENHYDRAMINE HCL 50 MG/ML VIAL IV ONE (10:35)
[2018-07-08] MEDS ORDERED: KETOROLAC TROMETHAMINE INJ/PF 30 MG/1 ML SDV IV ONE (10:35)
--- NOTE | 2018-07-08 10:36 | ER Document Report ---
ED Medical Screen (RME) - General Chief Complaint: Shortness Of Breath Stated Complaint: POSSIBLE ALLERGIC REACTION Time Seen by Provider: 07/08/18 10:28 Mode of Arrival: Wheelchair Information source: Patient Notes: This is a 33-year-old female with a history of chronic low back pain, fibromyalgia, status post vaginal delivery 1 month ago in [place] who was usual state of health until this morning when she awoke with dysuria, suprapubic pain, low-grade fever, nausea, diarrhea and back pain. TRAVEL OUTSIDE OF THE [place] IN LAST 30 DAYS: No - Related Data Allergies/Adverse Reactions: Penicillins Allergy (Intermediate, Verified 07/08/18 10:14) Past Medical History - Social History Chew tobacco use (# tins/day): No Frequency of alcohol use: None Drug Abuse: None Family history: None - Past Medical History Cardiac Medical History: Reports: Hx Hypertension Pulmonary Medical History: Reports: Hx Asthma Neurological Medical History: Reports: Hx Migraine Endocrine Medical History: Denies: Hx Diabetes Mellitus Type 1, Hx Diabetes Mellitus Type 2 Renal/ Medical History: Denies: Hx Peritoneal Dialysis Musculoskeltal Medical History: Reports Hx Fibromyalgia Psychiatric Medical History: Reports: Hx Depression - anxiety Past Surgical History: Reports: Hx Dilation and Curettage, Hx Gynecologic Surgery - D&C - Immunizations Immunizations up to date: Yes Hx Diphtheria, Pertussis, Tetanus Vaccination: Yes Physical Exam - Vital signs Vitals: Temp Pulse Resp BP Pulse Ox 98.1 F 89 24 H 150/106 H 94 07/08/18 10:16 07/08/18 10:16 07/08/18 10:16 07/08/18 10:16 07/08/18 10:16 Course - Vital Signs Vital signs: Temp Pulse Resp BP Pulse Ox 98.1 F 89 24 H 150/106 H 94 07/08/18 10:16 07/08/18 10:16 07/08/18 10:16 07/08/18 10:16 07/08/18 10:16
[2018-07-08 11:06] LABS: ABSOLUTE EOSINOPHILS # (AUTO) 0.1 10^3/uL (0.0-0.6); ABSOLUTE LYMPHOCYTES (AUTO) 0.9 10^3/uL (0.5-4.7); ABSOLUTE MONOCYTES (AUTO) 0.7 10^3/uL (0.1-1.4); ABSOLUTE NEUT (AUTO) 11.6 10^3/uL (1.7-8.2); BASOPHILS % (AUTO) 0.1 % (0-2); EOSINOPHILS % (AUTO) 0.6 % (0-6); HEMATOCRIT 36.5 % (36.0-47.0); LYMPHOCYTES % (AUTO) 6.5 % (13-45); MEAN CORPUSCULAR HEMOGLOBIN 30.1 pg (27.0-33.4); MEAN CORPUSCULAR HGB CONC 32.9 g/dL (32.0-36.0); MEAN CORPUSCULAR VOLUME 91 fl (80-97); MONOCYTES % (AUTO) 5.6 % (3-13); PLATELET COUNT 309 10^3/uL (150-450); RED BLOOD COUNT 3.99 10^6/uL (3.72-5.28); RED CELL DISTRIBUTION WIDTH 13.8 % (11.5-14.0); SEGMENTED NEUTROPHILS % (AUTO) 87.2 % (42-78); TOTAL CELLS COUNTED % (AUTO) 100 %; WHITE BLOOD COUNT 13.3 10^3/uL (4.0-10.5)
[2018-07-08 11:17] LABS: APPEARANCE,URINE SLIGHTLY-CLOUDY; BILIRUBIN,URINE NEGATIVE (NEGATIVE); COLOR,URINE STRAW; GLUCOSE, URINE NEGATIVE (NEGATIVE); KETONES,URINE NEGATIVE (NEGATIVE); LEUKOCYTE ESTERASE,URINE LARGE (NEGATIVE); NITRITE,URINE NEGATIVE (NEGATIVE); PROTEIN,URINE NEGATIVE (NEGATIVE); UROBILINOGEN,URINE NEGATIVE mg/dL (<2.0)
[2018-07-08 11:29] LABS: ALANINE AMINOTRANSFERASE 22 U/L (9-52); ALBUMIN 3.9 g/dL (3.5-5.0); ALKALINE PHOSPHATASE 143 U/L (38-126); ANION GAP 6 (5-19); ASPARTATE AMINO TRANSFERASE 40 U/L (14-36); BILIRUBIN,DIRECT 0.1 mg/dL (0.0-0.4); BILIRUBIN,TOTAL 0.3 mg/dL (0.2-1.3); BLOOD UREA NITROGEN 12 mg/dL (7-20); CALCIUM 8.8 mg/dL (8.4-10.2); CARBON DIOXIDE 29 mmol/L (22-30); CHLORIDE 105 mmol/L (98-107); GLUCOSE 119 mg/dL (75-110); SODIUM 139.6 mmol/L (137-145); TOTAL PROTEIN 7.1 g/dL (6.3-8.2)
[2018-07-08] MEDS ORDERED: CIPROFLOXACIN HCL 500 MG TABLET PO ONE (12:11)
[2018-07-08] MEDS ORDERED: CEPHALEXIN 500 MG CAPSULE PO ONE (12:39)
--- NOTE | 2018-07-08 12:46 | ER Document Report ---
ED General - General Chief Complaint: Shortness Of Breath Stated Complaint: POSSIBLE ALLERGIC REACTION Time Seen by Provider: 07/08/18 10:28 Mode of Arrival: Wheelchair TRAVEL OUTSIDE OF THE [place] IN LAST 30 DAYS: No - HPI Patient complains to provider of: Nausea vomiting upset stomach diarrhea Notes: Patient coming in for the above-stated symptoms seen in triage area doctor's notes provided below This is a 33-year-old female with a history of chronic low back pain, fibromyalgia, status post vaginal delivery 1 month ago in [place] who was usual state of health until this morning when she awoke with dysuria, suprapubic pain, low-grade fever, nausea, diarrhea and back pain. Patient states recently was started on clindamycin because of an infected tooth took 1 dose yesterday now has the above-stated symptoms. Patient denies any fevers or chills does state dysuria. Patient otherwise resting company upon my evaluation. - Related Data Allergies/Adverse Reactions: Penicillins Allergy (Intermediate, Verified 07/08/18 11:02) Past Medical History - General Information source: Patient - Social History Smoking Status: Never Smoker Chew tobacco use (# tins/day): No Frequency of alcohol use: None Drug Abuse: None Family History: Reviewed & Not Pertinent Patient has suicidal ideation: No Patient has homicidal ideation: No - Past Medical History Cardiac Medical History: Reports: Hx Hypertension Pulmonary Medical History: Reports: Hx Asthma Neurological Medical History: Reports: Hx Migraine Endocrine Medical History: Denies: Hx Diabetes Mellitus Type 1, Hx Diabetes Mellitus Type 2 Renal/ Medical History: Denies: Hx Peritoneal Dialysis Musculoskeletal Medical History: Reports Hx Fibromyalgia Psychiatric Medical History: Reports: Hx Depression - anxiety Past Surgical History: Reports: Hx Dilation and Curettage, Hx Gynecologic Surgery - D&C - Immunizations Immunizations up to date: Yes Hx Diphtheria, Pertussis, Tetanus Vaccination: Yes Review of Systems - Review of Systems Constitutional: No symptoms reported EENT: No symptoms reported Cardiovascular: No symptoms reported Respiratory: No symptoms reported Gastrointestinal: Abdominal pain, Diarrhea, Nausea Genitourinary: No symptoms reported Female Genitourinary: No symptoms reported Musculoskeletal: No symptoms reported Skin: No symptoms reported Hematologic/Lymphatic: No symptoms reported Neurological/Psychological: No symptoms reported -: Yes All other systems reviewed and negative Physical Exam - Vital signs Vitals: Temp Pulse Resp BP Pulse Ox 98.1 F 89 24 H 150/106 H 94 07/08/18 10:16 07/08/18 10:16 07/08/18 10:16 07/08/18 10:16 07/08/18 10:16 Interpretation: Normal - General General appearance: Appears well, Alert - HEENT Head: Normocephalic, Atraumatic Eyes: Normal Pupils: PERRL - Respiratory Respiratory status: No respiratory distress Chest status: Nontender Breath sounds: Normal Chest palpation: Normal - Cardiovascular Rhythm: Regular Heart sounds: Normal auscultation Murmur: No - Abdominal Inspection: Normal Distension: No distension Bowel sounds: Normal Tenderness: Nontender Organomegaly: No organomegaly - Back Back: Normal, Nontender - Extremities General upper extremity: Normal inspection, Nontender, Normal color, Normal ROM, Normal temperature General lower extremity: Normal inspection, Nontender, Normal color, Normal ROM, Normal temperature, Normal weight bearing. No: Thong's sign - Neurological Neuro grossly intact: Yes Cognition: Normal Orientation: AAOx4 Marlo Coma Scale Eye Opening: Spontaneous Marlo Coma Scale Verbal: Oriented [place] Coma Scale Motor: Obeys Commands Marlo Coma Scale Total: 15 Speech: Normal Motor strength normal: LUE, RUE, LLE, RLE Sensory: Normal - Psychological Associated symptoms: Normal affect, Normal mood - Skin Skin Temperature: Warm Skin Moisture: Dry Skin Color: Normal Course - Re-evaluation Re-evalutation: 07/08/18 14:53 Patient with uncomplicated UTI. Patient will be discharged home with Keflex patient is encouraged to follow-up with primary care physician. - Vital Signs Vital signs: Temp Pulse Resp BP Pulse Ox 98.1 F 89 23 H 144/80 H 98 07/08/18 10:16 07/08/18 10:16 07/08/18 13:00 07/08/18 12:02 07/08/18 13:00 - Laboratory Result Diagrams: 07/08/18 10:54 07/08/18 10:54 Laboratory results interpreted by me: 07/08/18 07/08/18 07/08/18 10:54 10:54 10:54 WBC 13.3 H Seg Neutrophils % 87.2 H Lymphocytes % 6.5 L Absolute Neutrophils 11.6 H Glucose 119 H AST 40 H Alkaline Phosphatase 143 H Urine Blood SMALL H Ur Leukocyte Esterase LARGE H Discharge - Discharge Clinical Impression: Nausea and diarrhea Urinary tract infection Qualifiers: Urinary tract infection type: site unspecified Hematuria presence: without hematuria Qualified Code(s): N39.0 - Urinary tract infection, site not specified Condition: Good Disposition: HOME, SELF-CARE Instructions: Nausea or Vomiting, Nonspecific ([facility]), Urinary Tract Infection ([facility]) Additional Instructions: Your laboratory studies show signs of a urine tract infection. I would highly recommend that you follow-up with your primary care physician. Please take the Bentyl as needed for abdominal cramping along with Tylenol and Motrin. He may take the Zofran as needed for any nausea. Please make sure you drink plenty fluids to stay well-hydrated. Prescriptions: Cephalexin Monohydrate [Keflex 500 mg Capsule] 500 mg PO Q6H 10 Days capsule Dicyclomine HCl [Bentyl 20 mg Tablet] 20 mg PO QID #30 tablet Ondansetron [Zofran Odt 4 mg Tablet] 1 - 2 tab PO Q4H PRN #30 tab.rapdis PRN Reason: For Nausea/Vomiting
[2018-07-08 13:11] VITALS: BP 144/80
== END 2018-07-08 13:11 | disposition home or self-care (01) ==
LOC: ER 10:12
DX: N39.0 Urinary tract infection, site not specified (principal); R11.2 Nausea with vomiting, unspecified; R19.7 Diarrhea, unspecified; R06.02 Shortness of breath; R10.9 Unspecified abdominal pain; G89.29 Other chronic pain; M54.5 Low back pain; I10 Essential (primary) hypertension; Z88.0 Allergy status to penicillin
CPT/HCPCS: 99283; 96361; 96374; 96375; 36415; 87086; 84702; 85025; 87088; 80053; 81001; 87186; J3490; J1200; J1885; J2765; J7120